=== PATIENT | female | born 1945 | race Caucasian/White ===

== ENCOUNTER → 2016-07-03 | Day surgery (SDC) | payer OTHER, MEDICARE ==
[2016-06-16 09:03] VITALS: Ht 165.1 cm; Wt 115.3 kg
--- NOTE | 2016-06-16 09:38 | PAT Medication Instructions ---
Service Date Jun 16, 2016. Current Home Medication List Albuterol Hfa (Ventolin Hfa), 1 PUFFS INH Q4H PRN for RN Aspirin (Aspirin Ec), 81 MG PO QAM Budesonide/Formoterol Fumarate (Symbicort 80/4.5 Inhaler), 1 PUFFS INH BID Cetirizine (Zyrtec), 10 MG PO QAM Lisinopril (Zestril), 10 MG PO QAM Metoprolol Succ (Toprol Xl) (Toprol-Xl), 50 MG PO QAM Omeprazole (Prilosec), 20 MG PO QAM Oxygen (Oxygen), 2 LITERS NA HS Sertraline (Zoloft), 75 MG PO QAM Simvastatin (Zocor), 40 MG PO QAM [Nasonex], 2 SPRAYS DESIREE QAM Medication Instructions For Your Scheduled Surgery - Check with surgeon for instructions: Aspirin (Aspirin Ec), 81 MG PO QAM - Hold the following medications the morning of surgery: [Nasonex], 2 SPRAYS DESIREE QAM Lisinopril (Zestril), 10 MG PO QAM Cetirizine (Zyrtec), 10 MG PO QAM - Take the following medications the morning of surgery with a sip of water: Simvastatin (Zocor), 40 MG PO QAM Sertraline (Zoloft), 75 MG PO QAM Omeprazole (Prilosec), 20 MG PO QAM Metoprolol Succ (Toprol Xl) (Toprol-Xl), 50 MG PO QAM Budesonide/Formoterol Fumarate (Symbicort 80/4.5 Inhaler), 1 PUFFS INH BID Albuterol Hfa (Ventolin Hfa), 1 PUFFS INH Q4H PRN for RN i(bring with you to hospital morning of surgery) - Take the following medications as scheduled the night before surgery: Oxygen (Oxygen), 2 LITERS NA HS Budesonide/Formoterol Fumarate (Symbicort 80/4.5 Inhaler), 1 PUFFS INH BID If you have any questions please call us at [phone] (Janine Cardoza PA-C) or [phone] or [phone]
[2016-06-16 10:36] LABS: HEMATOCRIT 41.7 % (37-47); MEAN CELL VOLUME 93.3 fL (80-100); MEAN CORPUSCULAR HEMOGLOBIN 31.3 pg (25-34); MEAN CORPUSCULAR HGB CONC 33.6 g/dl (32-36); MEAN PLATELET VOLUME 9.8 fL (7.4-10.4); PLATELET COUNT 303 K/uL (130-400); RED BLOOD COUNT 4.47 M/uL (4.2-5.4); WHITE BLOOD COUNT 5.85 K/uL (4.8-10.8)
[2016-06-16 11:15] LABS: CREATININE 0.98 mg/dl (0.60-1.20); POTASSIUM 4.2 mmol/L (3.5-5.1)
[2016-06-29 14:50] LABS: PROTHROMBIN TIME (PATIENT) 10.5 SECONDS (9.0-12.0)
[~2016-07-03] VITALS: Ht 165.1 cm; Wt 115.3 kg
[~2016-07-03] MED LIST: ALBUT/IPRATROP 3MG/0.5MG NEB 3 ML VIAL ONE; ALBUTEROL HFA INHALER 8.5 GM INH ONE; ASPI81TA28 PO; ATROPINE SULFATE 0.1 MG/ML 5ML SYR IV PRN; CEFAZOLIN 2000 MG/60 ML D5W IV SCH; CETI10TA84 PO; DEXAMETHASONE SOD INJ 4 MG/ML VIAL ONE; EpHEDrine SULFATE INJ 50 MG/ML AMP IV PRN; EpINEphrine INJ 1MG/ML AMP 1 MG/ML AMP ONE; FENTANYL CITRATE INJ 50 MCG/1 ML 2 ML VIAL IV PRN; FENTANYL CITRATE INJ 50 MCG/1 ML 2 ML VIAL ONE; GLYCOPYRROLATE INJ 0.2 MG/ML VIAL ONE; HYDROCODONE/ACETAMOPHEN 5/325MG TAB PO PRN; LACTATED RINGER'S 1000ML 1,000 ML IV SCH; LIDOCAINE 4% MPF SOAK 5 ML = 1 DOSE TOP ONE; LIDOCAINE HCL 2% 2 ML VIAL (20MG/ML) ONE; LIDOCAINE/EPINEPHRINE 1% INJ 50 ML VIAL ONE; LISI-461 PO; METO50TA7 PO; NASONEX NAE; NEOSTIGMINE METHYLSULFATE 5 MG/5 ML SYR ONE; NURSING VERBAL MED ORDER ONE; ONDANSETRON INJ 2 MG/ML 2 ML VIAL IV PRN; ONDANSETRON INJ 2 MG/ML 2 ML VIAL ONE; OXGN; OXYMETAZOLINE HCL 0.05% NA SPR 15 ML BTL PRN; OXYMETAZOLINE HCL 0.05% NA SPR 15 ML BTL SCH; PRLSR20 PO; PROPOFOL IV EMULSION 10 MG/ML 20 ML VIAL IV ONE; ROCURONIUM BROMIDE 10 MG/ML 5 ML VIAL ONE; SERT50TA PO; SIMV40TA2 PO; SUCCINYLCHOLINE 100MG/5ML SYR IV ONE; SYMIN/8045 INH; VNTHFA/IN INH
--- NOTE | 2016-07-03 09:07 | History & Physical Bridge - SC ---
H&P Re-Evaluation Bridge Note: I have examined the patient, reviewed the History & Physical and in the interval since the performance of the History & Physical I have noted the following changes of clinical significance: No changes noted
--- NOTE | 2016-07-03 10:39 | [facility] Operative Report ---
Operative Report Operative Date Jul 03, 2016. Pre-Operative Diagnosis Deviated Nasal Septum, Nasal Turbinate Hypertrophy Post-Operative Diagnosis Same Procedure(s) Performed Bilateral Endoscopic Sinus Surgery To Include Bilateral Maxillary Antrostomies And Anterior Ethmoidectomies, Septoplasty, And Bilateral Interior Turbinate Outfracture And Turbinoplasty Surgeon Dr Parada Freight Caller Surgeon(s) None Estimated Blood Loss 150ml Findings 1. MODERATE R SEPTAL DEVIATION 2. B ITH 3. POLYPOID MUCOSAL THICKENING B MAX AND ETHMOID SINUSES Specimens None I attest to the content of the Intraoperative Record and any orders documented therein. Any exceptions are noted below.
--- NOTE | 2016-07-03 10:41 | Discharge Instructions ---
Discharge Instructions Admission Reason for Admission: Deviated Nasal Septum, Hypertrophy Nasal Turbinate Discharge Discharge Diagnosis / Problem: SAME Discharge Goals Goal(s): Improve function Activity Recommendations Activity Limitations: as noted below 1. LIGHT ACTIVITY FOR 2WEEKS 2. NO NOSE BLOWING FOR 2WEEKS 3. NO DRIVING WHILE ON NARCOTIC PAIN MEDS . Current Hospital Diet Patient's current hospital diet: Discharge Diet Recommended Diet: Regular Diet Procedures Procedures Performed: Bilateral Endoscopic Sinus Surgery To Include Bilateral Maxillary Antrostomies And Anterior Ethmoidectomies, Septoplasty, And Bilateral Interior Turbinate Outfracture And Turbinoplasty Pending Studies Studies pending at discharge: no Medical Emergencies . Who to Call and When: Medical Emergencies: If at any time you feel your situation is an emergency, please call 911 immediately. . Non-Emergent Contact Non-Emergency issues call your: Surgeon . . "Provider Documentation" section prepared by Nino Parada. VTE Core Measure Inpt VTE Proph given/why not?: SCD's
--- NOTE | 2016-07-03 11:21 | OPERATIVE REPORT ---
DATE OF OPERATION: 07/03/2016 PREOPERATIVE DIAGNOSES: 1. Chronic sinusitis. 2. Right septal deviation. 3. Left greater than the right inferior turbinate hypertrophy. POSTOPERATIVE DIAGNOSES: 1. Chronic sinusitis. 2. Right septal deviation. 3. Left greater than the right inferior turbinate hypertrophy. PROCEDURES: 1. Bilateral maxillary antrostomies. 2. Bilateral anterior ethmoidectomies. 3. Septoplasty. 4. Bilateral inferior turbinate out fracture and turbinoplasty. SURGEON: Dr. Parada. ANESTHESIA: General endotracheal. ESTIMATED BLOOD LOSS: 150 mL. FINDINGS: 1. Moderate right nasal septal deviation. 2. Left greater than right inferior turbinate hypertrophy. 3. Polypoid mucosal thickening involving the bilateral maxillary and ethmoid sinuses. SPECIMENS: None. COMPLICATIONS: None. INDICATIONS: The patient is a 71-year-old female with the above-mentioned history who presents for the above-mentioned procedure on an outpatient elective basis. DESCRIPTION OF PROCEDURE: After informed consent had been obtained from the patient, the patient was wheeled to the operating room and placed on the operating table in supine position. Monitors were placed after induction of general endotracheal anesthesia, patient was prepped in usual fashion for endoscopic sinus surgery. Lidocaine and epinephrine pledgets were placed in the bilateral nasal cavities and pressure applied. The left-sided pledgets were removed and a [place] elevator was used to medialize the left middle turbinate and the left middle turbinate and the lateral nasal wall were injected with 1% lidocaine with 1:100,000 epinephrine. The right side was then addressed in a similar fashion. The left-sided pledgets were removed. A freer elevator was used to incise the uncinate process and the uncinate process was removed using straight August-Cut forceps and power instrumentation. The natural ostium of the left maxillary sinuses identified and this was enlarged anteriorly, inferiorly, and posteriorly using backbiting forceps and power instrumentation. An anterior ethmoidectomy was then performed using power instrumentation. Of note, there was polypoid mucosal thickening involving the left maxillary and ethmoid sinuses. Right side was then addressed in a similar fashion with similar intraoperative findings. The nasal septum was then injected with 1% lidocaine with 1:100,000 epinephrine. A #15 scalpel was used to make a left hemitransfixion incision through which the left side mucoperichondrial and mucoperiosteal flap was elevated. A #15 scalpel was then used to incise the quadrangular cartilage with care to preserve a 1 cm dorsal and caudal stretch and the right-sided mucoperichondrial and mucoperiosteal flap was elevated through this cartilage utilizing this incision. Deviated portion of the quadrangular cartilage was then removed using a [place] silver knife and Da forceps. There was cartilaginous deviation to the right hand side anteriorly and with removal of the deviated portion of the quadrangular cartilage, the septum was found to be midline. There is no bony deviation. The septal cavity was then suctioned. A left hemitransfixion incision was closed with several simple interrupted 4-0 chromic sutures. A 4-0 plain gut suture on a Kiran needle was then used to perform a quilting stitch of the mucoperichondrial and mucoperiosteal flaps bilaterally to help prevent septal hematoma. A Velásquez elevator was then used in fracture and subsequently out fracture the inferior turbinates bilaterally. The inferior turbinates were injected with 1% lidocaine with 1:100,000 epinephrine. A 2.0 mm turbinate blade using power instrumentation was then used to perform bilateral inferior turbinoplasty in a submucosal fashion. The sinonasal cavities and nasopharynx were then suctioned. Merogel nasal dressing was placed in the bilateral ethmoid cavities/middle meati. An orogastric tube was placed and the stomach was suctioned free of stomach contents. This marked the end of the case. The patient tolerated the procedure well and there were no apparent complications. The patient was extubated and transferred to recovery room in stable condition. I attest to the content of the Intraoperative Record and any orders documented therein. Any exceptio ns are noted below.
--- NOTE | 2016-07-03 12:18 | Anesthesia Progress Nt - [facility] ---
Anesthesia Post Op Note Date & Time Jul 03, 2016 at 12:17 Vital Signs Pain Intensity: 4 Vital Signs Past 12 Hours Date Time Temp Pulse Resp B/P Pulse Ox O2 Delivery O2 Flow Rate FiO2 07/03/16 12:04 68 19 07/03/16 12:04 69 19 91 07/03/16 12:00 36.5 74 22 141/70 94 Room Air 07/03/16 11:58 141/70 07/03/16 11:54 69 24 88 07/03/16 11:54 69 24 07/03/16 11:53 166/73 07/03/16 11:49 79 20 145/64 90 07/03/16 11:49 70 21 90 07/03/16 11:43 155/72 07/03/16 11:39 69 23 93 07/03/16 11:39 67 23 07/03/16 11:38 161/71 07/03/16 11:34 69 19 96 07/03/16 11:34 69 24 96 07/03/16 11:33 175/73 07/03/16 11:28 170/70 07/03/16 11:24 64 17 96 07/03/16 11:24 64 17 07/03/16 11:23 156/71 07/03/16 11:19 65 25 94 07/03/16 11:19 65 20 94 07/03/16 11:18 165/69 07/03/16 11:17 66 21 94 07/03/16 11:17 65 30 93 07/03/16 11:13 153/66 07/03/16 11:08 173/70 07/03/16 11:07 70 16 07/03/16 11:07 69 16 96 07/03/16 11:03 169/73 07/03/16 11:02 71 14 96 07/03/16 11:02 68 17 96 07/03/16 10:58 154/78 07/03/16 10:53 171/74 07/03/16 10:52 73 11 96 07/03/16 10:52 73 11 07/03/16 10:49 160/52 07/03/16 10:47 76 17 88 07/03/16 10:47 77 16 90 07/03/16 10:44 152/62 07/03/16 10:39 140/78 07/03/16 10:37 74 15 93 07/03/16 10:37 77 17 94 07/03/16 10:33 172/61 07/03/16 10:32 72 34 90 07/03/16 10:32 73 34 07/03/16 10:32 36.2 74 32 162/73 90 High Flow Oxygen 6 Diffusion Mask 07/03/16 08:16 36.3 72 20 184/90 95 Room Air Notes Mental Status: alert / awake / arousable, participated in evaluation Pt Amnestic to Procedure: Yes Nausea / Vomiting: adequately controlled Pain: adequately controlled Airway Patency, RR, SpO2: stable & adequate BP & HR: stable & adequate Hydration State: stable & adequate Anesthetic Complications: no major complications apparent
[2016-07-03 12:34] VITALS: TEMP 36.8
[2016-07-03 12:49] VITALS: BP 154/81; PULSE 73; O2SAT 92
== END | disposition home or self-care (01) ==
LOC: X.SURG 07:42
DX: J32.0 Chronic maxillary sinusitis (principal); J32.2 Chronic ethmoidal sinusitis; J34.2 Deviated nasal septum; J34.3 Hypertrophy of nasal turbinates; R05 Cough; I10 Essential (primary) hypertension; F32.9 Major depressive disorder, single episode, unspecified; E78.5 Hyperlipidemia, unspecified; G47.30 Sleep apnea, unspecified; R06.83 Snoring; K21.9 Gastro-esophageal reflux disease without esophagitis; R09.81 Nasal congestion; Z98.890 Other specified postprocedural states

== ENCOUNTER → 2016-12-20 | Outpatient (CLI) | payer OTHER, MEDICARE ==
[~2016-12-20] MED LIST changes: -ALBUT/IPRATROP 3MG/0.5MG NEB 3 ML VIAL ONE; -ALBUTEROL HFA INHALER 8.5 GM INH ONE; -ASPI81TA28 PO; -ATROPINE SULFATE 0.1 MG/ML 5ML SYR IV PRN; -CEFAZOLIN 2000 MG/60 ML D5W IV SCH; -DEXAMETHASONE SOD INJ 4 MG/ML VIAL ONE; -EpHEDrine SULFATE INJ 50 MG/ML AMP IV PRN; -EpINEphrine INJ 1MG/ML AMP 1 MG/ML AMP ONE; -FENTANYL CITRATE INJ 50 MCG/1 ML 2 ML VIAL IV PRN; -FENTANYL CITRATE INJ 50 MCG/1 ML 2 ML VIAL ONE; -GLYCOPYRROLATE INJ 0.2 MG/ML VIAL ONE; -HYDROCODONE/ACETAMOPHEN 5/325MG TAB PO PRN; -LACTATED RINGER'S 1000ML 1,000 ML IV SCH; -LIDOCAINE 4% MPF SOAK 5 ML = 1 DOSE TOP ONE; -LIDOCAINE HCL 2% 2 ML VIAL (20MG/ML) ONE; -LIDOCAINE/EPINEPHRINE 1% INJ 50 ML VIAL ONE; -NASONEX NAE; -NEOSTIGMINE METHYLSULFATE 5 MG/5 ML SYR ONE; -NURSING VERBAL MED ORDER ONE; -ONDANSETRON INJ 2 MG/ML 2 ML VIAL IV PRN; -ONDANSETRON INJ 2 MG/ML 2 ML VIAL ONE; -OXYMETAZOLINE HCL 0.05% NA SPR 15 ML BTL PRN; -OXYMETAZOLINE HCL 0.05% NA SPR 15 ML BTL SCH; -PROPOFOL IV EMULSION 10 MG/ML 20 ML VIAL IV ONE; -ROCURONIUM BROMIDE 10 MG/ML 5 ML VIAL ONE; -SUCCINYLCHOLINE 100MG/5ML SYR IV ONE
--- NOTE | 2016-12-21 06:47 | PAP/PSG TECHNICIAN REPORT ---
[facility] Demand Planner Polysomnogram Report Study name: None Report date: 12/21/2016 Study date: 12/20/2016 Referring Physician: Lauren Brito PA-C, PA-C Name: MALENA SPARROW Interpreting Physician: Matt Ricci M.D. Date of : 1945 Demand Planner: Volodymyr Rowan RPSGT. Sex: Female Age: 71 StudyType: PSG PAP Weight: 262 lbs Height: 71 years, Height 5' 5" BMI: 43.59 Medications: SYMBICORT, MUPIROCIN, BENZONATATE 100 MG, ASPIRIN 81 MG, NASONEX 50 MCG/ACT, OMEPRAZOLE 20 MG, OXYGEN 2L/MIN, SERTRALINE HCL 50 MG, SIMVASTATIN 40 MG, TOPROL XL 50 MG, VENTOLIN HFA 108 (90) BASE, ZYRTEC 10 MG, Patient History PATIENT HAD A SLEEP STUDY DONE IN 2015 AND WAS POSITIVE FOR SHANIKA WITH AN AHI OF 18.6/HR. SHE IS HERE TODAY FOR A CPAP TITRATION. RM 1 Parameters Monitored NPSG: E1-M2, E2-M1, Fp1-M2, Fp2-M1, F3-M2, F4-M2, F4-M1, C3-M2, C4-M2, C4-M1, O1-M2, O2-M2, O2-M1, T3-M2, T4-M1, P3-M2, P4-M1, CHIN1, CHIN2, HR, EKG, Legs, PFLOW, SNOR, FLOW, CFLOW, Tidal Volume, THOR, ABDO, SpO2, PLTH, CPRESS, ETCO2 Wave, ETCO2, pH Sleep Architecture Sleep Stages Time at Lights Off 10:40:42 PM STAGES Time (min.) TST (%) Time at Lights On 5:45:12 AM Wake 68.0 -- Total Recording Time (TRT) 425.00 min. N1 16.5 5 Total Sleep Period (TSP) 399.0 min. N2 222.0 62 Total Sleep Time (TST) 356.5min. N3 77.0 22 Awake Time 68.0 min. REM 41.0 12 Wake after Sleep Onset 42.5 min. Sleep Efficiency (SE) 84 % Sleep Onset Latency (ANIBAL) 25.5 min. Number of Stage 1 Shifts None Awakenings 30 Stage Changes 134 Number of REM periods 1 REM 41.0 12 REM Latency 322.0 min. NREM 315.5 88 Body Position Analysis Supine Right Left Side Prone Vertical Total Sleep Time (min.) 51.3 341.5 0.0 341.50 0.0 0.0 Total Sleep Time (%) 4% 96% 0% 96 0% N/A% Total Sleep Time REM (min.) 0.0 41.0 0.0 None 0.0 0.0 Total Sleep Time NREM (min.) 15.0 300.5 0.0 None 0.0 0.0 Intermittent Wake (min.) 36.3 31.7 0.0 None 0.0 0.0 Total Sleep Period (%) 6% None None None None None Arousals Myoclonus (PLM) * Events Count Index Events Count Index Spontaneous 56 9 Events Awake (PLMW) 95 83.8 Respiratory 19 3.4 Events Asleep w/ Arousal (PLMA) 25 4.2 PLM 24 4 Events Asleep w/o Arousal (PLMS) 210 35.3 Snoring 12 2 Total Asleep 235 39.6 Total 110 19 Total 330 47 Respiratory Analysis * CA OA MA CH H RERA Total Count 1 3 0 0 9 20 13 Index 0.2 0.5 0.0 0 1.5 3 5.6 Mean Duration 12.0 13.2 0.0 0.00 16.0 13.8 14.3 Longest Duration 12.0 14.5 0.0 0.00 0.0 19.9 19.9 Respiratory Event Summary Total Supine ~Supine Right Left Prone REM NREM Apneas Count 4 0 4 4 N/A N/A 0 4 Index 0.7 0 1 0.7 N/A N/A 0 1 Hypopneas (4% Desat) Count 9 2 7 7 N/A N/A 1 8 Index 1.5 8.0 1 1.2 N/A N/A 1.5 1.5 Apneas & All Hypopneas Count 13 2 11 11 N/A N/A 1 12 Index 2.2 8 2 2 N/A N/A 1.5 2.3 Respiratory Events (Animal Taxonomist+All Hyp+RERA) Count 13 3 30 30 N/A N/A 1 12 Index 5.6 12 5 5.3 N/A N/A 1.5 6.1 Respiratory Related Arousal Count 19 3 17 17 N/A N/A 0 20 Index 3.4 12 3 3 N/A N/A 0 4 Snoring Analysis Supine Right Left Prone REM NREM Total Snore duration 6.6 min Snores count 30 268 N/A N/A 2 296 298 Snore mean duration 1.3 Sec Snores index 120 47 N/A N/A 2.9 56.3 50.2 TST with snoring (%) 1.8% Desaturation Event Summary: Minimum %SpO2 Event Count Mean/Min/Max Duration(sec.) Desaturation Index % Time In Bed > 90 29 29.7 / 12.8 / 60.0 5.7 72.2 86 - 90 3 18.8 / 12.8 / 26.8 1.5 27.8 81 - 85 0 N/A 0.0 0.0 76 - 80 0 N/A 0.0 0.0 71 - 75 0 N/A 0.0 0.0 66 - 70 0 N/A 0.0 0.0 61 - 65 0 N/A 0.0 0.0 56 - 60 0 N/A 0.0 0.0 51 - 55 0 N/A 0.0 0.0 < 50 0 N/A 0.0 0.0 Total REM NREM Awake <50% 0.0 min. 0.0 min. 0.0 min. 0.0 min. 51 - 60% 0.0 min. 0.0 min. 0.0 min. 0.0 min. 61 - 70% 0.0 min. 0.0 min. 0.0 min. 0.0 min. 71 - 80% 0.0 min. 0.0 min. 0.0 min. 0.0 min. 81 - 90% 118.1 min. 4.9 min. 102.2 min. 11.0 min. 91 - 100% 306.1 min. 36.1 min. 213.3 min. 56.6 min. Average 91 92 91 92 Minimum SpO2 86 89 87 86 Desaturation Event Index 4.1 1.5 2.5 14.1 # Desat. Events below 89% 5 N/A 4 1 Time(%) with Saturation below 89% 4.6 0.0 4.2 0.4 Time(min.) with Saturation below 89% 19.5 0.0 17.6 1.9 Time (mins) REM (mins) NREM (mins) % of TST SpO2 Below 90% 12 1 N11 12.8 SpO2 Below 88% 2 0 0 1 Heart Rate Analysis Min (bpm) Max (bpm) Average (bpm) Awake 52 127 60 NREM 49 68 58 REM 54 61 58 Overall 49 68 58 Supplemental O2 Values Minimum O2 level: None Value Start Time End Time Demand Planner Comments Mrs. Sparrow slept in the right and supine positions. No cardiac arrhythmia noted. Leg movements noted. No bruxism noted. CPAP was initiated at +4 CMH2O and up-titrated to an optimal level of +11 CMH2O, which nearly eliminated all respiratory events and snoring. A Resmed mirage fx nasal mask for her size small was used during titration Mrs. Sparrow awoke to use the restroom 0 times during the night. Mrs. Sparrow stated I slept as well as I do when I am in my own bed. The final report will be interpreted and signed by a sleep physician. The completed physician report will then be placed in the patient medical record. Therapy Event: Therapy (cm H20) 4 5 6 8 9 10 11 Total Time at Pressure (min.) 53.7 49.9 5.6 7.0 45.3 183.7 79.2 TST at Pressure (min.) 17.2 44.4 5.6 7.0 42.8 163.2 76.2 # Periods 1 1 1 1 1 1 1 Sleep Onset (min.) 25.5 0.0 0.0 0.0 0.0 0.0 0.0 REM Onset (min.) N/A N/A N/A N/A N/A N/A 2.2 Sleep Efficiency % 32 89 100 100 94 88 96 Wakefulness (%) 67.9 11.0 0.0 0.0 5.5 11.2 3.8 Wakefulness (min.) 36.5 5.5 0.0 0.0 2.5 20.5 3.0 NREM 1 (%) 9.3 3.0 8.9 0.0 1.1 3.8 2.5 NREM 1 (min.) 5.0 1.5 0.5 0.0 0.5 7.0 2.0 NREM 2 (%) 22.8 58.9 91.1 46.2 44.3 64.6 42.0 NREM 2 (min.) 12.2 29.4 5.1 3.2 20.1 118.7 33.2 NREM 3 (%) 0.0 27.1 0.0 53.8 49.1 20.4 0.0 NREM 3 (min.) 0.0 13.5 0.0 3.8 22.2 37.5 0.0 REM (%) 0.0 0.0 0.0 0.0 0.0 0.0 51.7 REM (min.) 0.0 0.0 0.0 0.0 0.0 0.0 41.0 # Arousals 14 18 5 0 17 50 6 Arousal Index 48.7 24.3 53.1 0.0 23.8 18.4 4.7 # Snore 31 57 31 45 40 87 7 Snore Index 107.8 77.0 329.4 387.5 56.0 32.0 5.5 AHI 7.0 6.8 21.3 0.0 1.4 0.0 2.4 AHI Supine 8.0 N/A N/A N/A N/A N/A N/A AHI Non-Supine 0.0 6.8 21.3 0.0 1.4 0.0 2.4 NREM AHI 7.0 6.8 21.3 0.0 1.4 0.0 3.4 REM AHI N/A N/A N/A N/A N/A N/A 1.5 RDI 10.4 13.5 42.5 0.0 5.6 2.9 3.1 # Obstructive 0 2 1 0 0 0 0 # Central Ap 0 0 0 0 0 0 1 # Mixed 0 0 0 0 0 0 0 # Hypopneas 2 3 1 0 1 0 2 RERAS 1 5 2 0 3 8 1 Total Respiratory Events 3 10 4 0 4 8 4 Time Below SpO2 89.00% (min.) 0.0 11.4 0.6 0.0 0.2 5.0 0.4 Mean NREM SpO2 (%) 93 90 91 92 91 91 91 Mean REM SpO2 (%) N/A N/A N/A N/A N/A N/A 92 Mean Sleep SpO2 (%) 93 90 91 92 91 91 91 Min NREM SpO2 (%) 91 87 87 90 88 88 88 Min REM SpO2 (%) N/A N/A N/A N/A N/A N/A 89 Position Supine (min.) 15.0 0.0 0.0 0.0 0.0 0.0 0.0 Position Non-supine (min.) 2.2 44.4 5.6 7.0 42.8 163.2 76.2 LM Index Sleep 31.3 74.3 10.6 120.6 103.6 24.3 12.6 LM Index NREM 31.3 74.3 10.6 120.6 103.6 24.3 10.2 LM Index REM N/A N/A N/A N/A N/A N/A 14.6 Mean Heart Rate (bpm) 62 63 61 59 61 56 56 Min Heart Rate (bpm) 58 55 56 57 56 49 49
--- NOTE | 2016-12-22 15:59 | Sleep Study ---
Sleep Study Report Date of Service: December 20, 2016 Sleep Study Report Clinical data: 71-year-old female with a BMI of [address] Byrd , Lauren Brito PA-C, and for a CPAP titration study. She had a sleep study done in February of 2016 which showed moderate sleep apnea with an AHI of 18.6 per hour. Sleep architecture: Total sleep time was 356.5 minutes divided between 315.5 minutes of non-REM sleep and 41 minutes of REM sleep. Sleep onset latency was 25.5 minutes. REM latency was 322 minutes. Sleep efficiency was 84 percent. Wake after sleep onset was 42.5 minutes. Sleep consist of stage N1 5 percent, N2 62 percent, N3 22 percent, and REM 12 percent. Arousal data: 110 arousals were recorded for an index of 19 per hour. PLM data: 235 limb movements during sleep were noted for an index of 39.6 per hour with an arousal index of 4.2 per hour. Respiratory data: The AHI was 2.2. There was 1 central and 3 obstructive apneic episodes. The longest apnea episode was 14.5 seconds. There were 9 hypopneas episodes. The mean duration of hypopnea was 16 seconds. Oximetry data: Transient nocturnal hypoxemia was seen. Oxygen javier was 87 percent during non-REM sleep. Mean saturation was 91 percent. Time below 88 percent was 2 minutes. EKG: Heart rates ranged from 49 to 68 beats per minute. No arrhythmias were noted. Sheriff Deputy's comments and treatment summary: Patient slept in the right and supine positions. A ResMed Mirage FX nasal mask size small was used. The patient was titrated up to her final pressure setting of 11 centimeters water pressure. At her final pressure setting, the patient slept for 76 minutes with an AHI of 2.4. Impression: Moderate obstructive sleep apnea corrected with CPAP 11 centimeters water pressure with a residual AHI of 2.4. Recommendations: The patient should be started on CPAP at the above-noted pressure setting with the above-noted face mask. She should be seen back in follow-up within 90 days to document efficacy and compliance. Copies To 1: Lauren Brito PA-C; Sofiya Dias M.D.; Julián Byrd MD
== END | disposition home or self-care (01) ==
LOC: C.NEUR 20:00
PROVIDERS: ATTEND Physician Assistant
DX: G47.33 Obstructive sleep apnea (adult) (pediatric) (principal)